=== PATIENT | female | born 1955 | race Caucasian/White ===

== ENCOUNTER 2021-08-28 09:30 | Emergency (ER) | payer MEDICARE, OTHER ==
[2021-08-28] MEDS ORDERED: Norflex 60 MG/2 ML IM ONE (10:13)
[2021-08-28] MEDS ORDERED: TORAdol 30 mg Injection IM ONE (10:13)
--- NOTE | 2021-08-28 10:19 | ERPHSYRPT ---
- History of Present Illness Time Seen by Provider: 08/28/21 09:35 Source: patient Exam Limitations: no limitations Patient Subjective Stated Complaint: Pt has a chronic painful right hip that is hurting again, she has seen Abdirizak King and Dr. Juarez at [facility] for this issue Triage Nursing Assessment: Pt brought to the ER by her family, vitals wnl, rates pain as 7/10 while just laying, pulses normal, denies pain with palpatation to right hip, pain to lower back with palpatation Physician History: 66 years old female with history of hypertension, hyperlipidemia, diabetes mellitus, chronic low back and right hip pain for which she is doing follow-up with Ortho [facility] care and Dr. Anayeli Kaiser at [place] presented in the ER for the last 3 to 4 days history of increasing pain in the right hip with ambulation and partial relief with taking Anchorage which she had from previous visit and resting. Denies any numbness tingling weakness of lower extremities, no loss of bowel or bladder control. Denies any midline back pain. Pain is similar to previous episodes. No fall or trauma reported. No difficulty movements of right hip. Timing/Duration: day(s) (3), constant, gradual onset, worse Method of Injury: unknown Quality: sharp, aching Back Pain Location: paraspinous muscles Severity of Pain-Max: severe Severity of Pain-Current: moderate Modifying Factors: Improves With: immobilization, rest. Worsens With: movement Associated Symptoms: lower back pain, muscle spasms, No urinary incontinence, No loss of bowel control, No numbness in legs/feet, No weakness, No sensory/motor loss, No tingling in legs/feet Previous symptoms: same symptoms as today Allergies/Adverse Reactions: Sulfa (Sulfonamide Antibiotics) Allergy (Verified 08/28/21 10:13) Home Medications: ALPRAZolam 0.25 MG [xanAX 0.25 MG] 0.25 mg PO BID 08/28/21 [History] Atorvastatin Calcium 20 mg PO DAILY 08/28/21 [History] Carvedilol 3.125 mg [Coreg 3.125 MG] 3.125 mg PO BID 08/28/21 [History] Duloxetine HCl 60 mg PO DAILY 08/28/21 [History] Empagliflozin [Jardiance] 10 mg PO DAILY 08/28/21 [History] Gabapentin 300 mg [Neurontin 300 mg] 300 mg PO BID 08/28/21 [History] Insulin Glargine [Lantus Insulin] 60 unit SQ BID 08/28/21 [History] Insulin Lispro [Humalog] 20 unit SQ BID 08/28/21 [History] Metformin HCl 500 mg [Glucophage 500 MG] 500 mg PO BIDWM 08/28/21 [History] Travel Risk - International Travel Have you traveled outside of the country in past 3 weeks: No - Coronavirus Screening Are you exhibiting any of the following symptoms?: No Close contact with a COVID-19 positive Pt in past 14-21 Days: No - Vaccine Status Have you recieved a Covid-19 vaccination: Yes 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 - Vaccination Dates Date of 2cond Vaccination (if applicable): 10/2020 - Review of Systems Constitutional: No Symptoms Eyes: No Symptoms Respiratory: No Symptoms Cardiac: No Symptoms Abdominal/Gastrointestinal: No Symptoms Genitourinary Symptoms: No Symptoms Musculoskeletal: Arthralgias, Back Pain Skin: No Symptoms Neurological: No Symptoms Psychological: No Symptoms Endocrine: No Symptoms Hematologic/Lymphatic: No Symptoms Immunological/Allergic: No Symptoms - Past Medical History Neurological History: No Pertinent History Cardiac History: High Cholesterol, Hypertension Respiratory History: Sleep Apnea Endocrine Medical History: Diabetes Type II Musculoskeletal History: Arthritis, Degenerative Disk Disease, Osteoarthritis Other Medical History: . 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 - Social History Smoking Status: Never smoker Exposure to second hand smoke: No Drug Use: none Patient Lives Alone: Yes - Female History Hx Now: No - Nursing Vital Signs Nursing Vital Signs: Initial Vital Signs Temperature 97.1 F 08/28/21 09:56 Pulse Rate 56 L 08/28/21 09:56 Blood Pressure 179/72 08/28/21 09:56 O2 Sat by Pulse Oximetry 98 08/28/21 09:56 Pain Scale Pain Intensity 7 - Physical Exam General Appearance: no apparent distress, alert Eye Exam: PERRL/EOMI, eyes nml inspection Ears, Nose, Throat Exam: normal ENT inspection Neck Exam: normal inspection, non-tender, supple, full range of motion Respiratory Exam: normal breath sounds, lungs clear Cardiovascular Exam: normal heart sounds, bradycardia Gastrointestinal Exam: soft, normal bowel sounds, other (Ventral hernia), No tenderness Back Exam: normal inspection, normal range of motion, CVA tenderness, muscle spasm, other (Mild tenderness in right sacroiliac area), No vertebral tenderness, No decreased range of motion Extremity Exam: normal inspection, normal range of motion, pelvis stable Neurologic Exam: alert, oriented x 3, cooperative, nml station & gait, sensation nml, No motor deficits Skin Exam: normal color SpO2 Interpretation: normal SpO2: 98 O2 Delivery: Room Air - Progress Progress: improved Progress Note: 08/28/21 she does not have any midline tenderness. Straight leg raising test negative bilaterally. Intact neuro in both lower extremities. No signs of cauda equina. Pain is similar to previous. She is given symptomatic treatment with Toradol and Norflex, reevaluation feeling better. She is advised to take Anchorage which she has at home and will give some muscle relaxants. Discussed on symptoms of worsening needing return to ER which she seems understanding. Stable for discharge. Counseled pt/family regarding: diagnosis, need for follow-up - Departure Departure Disposition: Home Clinical Impression: Low back strain Condition: Stable Critical Care Time: No Referrals: THEO MERCHANT MD [Primary Care Provider] - Follow Up with PCP/3 days ORTHO - ROBERT PATEL NP [NON-STAFF PHY W/O PRIVILEGES] - Follow up/PCP as directed (In 3 days for reevaluation) Instructions: Low Back Pain (DC), Back Muscle Strain (DC) Additional Instructions: Continue with Anchorage/Vicodin which you have at home. Follow-up with Ortho and Dr. Chaparro for reevaluation early next week. Return to ER for worsening/intractable low back pain, numbness tingling weakness of lower extremities/loss of bowel or bladder control. Prescriptions: Cyclobenzaprine HCl 10 mg [Flexeril 10 MG] 10 mg PO TID #12 tablet
[2021-08-28] MEDS ORDERED: TORAdol 30 mg Injection ONE (10:23)
[2021-08-28] MEDS ORDERED: Norflex 60 MG/2 ML ONE (10:23)
[2021-08-28 10:57] VITALS: BP 137/70; PULSE 64; O2SAT 95
== END 2021-08-28 11:04 | disposition home or self-care (01) ==
LOC: ED 09:30
DX: S39.012A Strain of muscle, fascia and tendon of lower back, initial encounter (principal); I10 Essential (primary) hypertension; E78.5 Hyperlipidemia, unspecified; E11.9 Type 2 diabetes mellitus without complications; Z79.4 Long term (current) use of insulin; Z79.84 Long term (current) use of oral hypoglycemic drugs; Z79.891 Long term (current) use of opiate analgesic; Z79.899 Other long term (current) drug therapy
CPT/HCPCS: 96372; 99284; J1885; J2360

== ENCOUNTER 2022-01-23 15:41 | Emergency (ER) | payer MEDICARE, OTHER ==
[2022-01-23 15:57] VITALS: BP 179/87; PULSE 78; O2SAT 98
[2022-01-23] MEDS ORDERED: TORAdol 30 mg Injection IM ONE (16:08)
--- NOTE | 2022-01-23 16:08 | ERPHSYRPT ---
- History of Present Illness Time Seen by Provider: 01/23/22 16:05 Source: patient Exam Limitations: no limitations Patient Subjective Stated Complaint: Fall Triage Nursing Assessment: Patient brought back to ED per w/c and transferred self to bed. Patient A+O X3. Patient states she walked on her wooden deck and slipped on water causing her to fall. Patient complains of head pain, right arm pain and right lower back pain 8/10. Patient has swelling noted to lower right side of back. Physician History: Patient states she walked on her wooden deck and slipped on water causing her to fall. Patient complains of head pain, right arm pain and right lower back pain 8/10. Patient has swelling noted to lower right side of back. Occurred: just prior to arrival Reason for Fall: slipped Injuries/Pain Location: head, back, pelvis Loss of Consciousness: no loss of consciousness Quality: aching Severity of Pain-Max: moderate Severity of Pain-Current: moderate Modifying Factors: Improves With: cold therapy Associated Symptoms (Fall): denies symptoms Body Map: 1 - area of pain Allergies/Adverse Reactions: Sulfa (Sulfonamide Antibiotics) Allergy (Verified 01/23/22 15:50) Home Medications: ALPRAZolam 0.25 MG [xanAX 0.25 MG] 0.25 mg PO BID 08/28/21 [History] Atorvastatin Calcium 20 mg PO DAILY 08/28/21 [History] Carvedilol 3.125 mg [Coreg 3.125 MG] 3.125 mg PO BID 08/28/21 [History] Duloxetine HCl 60 mg PO DAILY 08/28/21 [History] Empagliflozin [Jardiance] 10 mg PO DAILY 08/28/21 [History] Gabapentin [Neurontin 300 mg] 300 mg PO BID 08/28/21 [History] Insulin Glargine [Lantus Insulin] 60 unit SQ BID 08/28/21 [History] Insulin Lispro [Humalog] 20 unit SQ BID 08/28/21 [History] Metformin HCl 500 mg [Glucophage 500 MG] 500 mg PO BIDWM 08/28/21 [History] Hx Influenza Vaccination/Date Given: No Hx Pneumococcal Vaccination/Date Given: No Immunizations Up to Date: Yes Travel Risk - International Travel Have you traveled outside of the country in past 3 weeks: No - Coronavirus Screening Are you exhibiting any of the following symptoms?: No Close contact with a COVID-19 positive Pt in past 14-21 Days: No - Vaccine Status Have you recieved a Covid-19 vaccination: Yes 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 - Vaccination Dates Date of 2cond Vaccination (if applicable): 10/2020 - Review of Systems Constitutional: No Fever, No Chills Eyes: No Symptoms Ears, Nose, & Throat: No Symptoms Respiratory: No Cough, No Dyspnea Cardiac: No Chest Pain, No Edema, No Syncope Abdominal/Gastrointestinal: No Abdominal Pain, No Nausea, No Vomiting, No Diarrhea Genitourinary Symptoms: No Dysuria Musculoskeletal: Back Pain, Fall, Joint Pain (right hip), No Neck Pain Skin: No Rash Neurological: No Dizziness, No Focal Weakness, No Sensory Changes Psychological: No Symptoms Endocrine: No Symptoms All Other Systems: Reviewed and Negative - Past Medical History Neurological History: No Pertinent History Cardiac History: High Cholesterol, Hypertension Respiratory History: Sleep Apnea Endocrine Medical History: Diabetes Type II Musculoskeletal History: Arthritis, Degenerative Disk Disease, Osteoarthritis Other Medical History: . 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 - Social History Smoking Status: Never smoker Exposure to second hand smoke: No Drug Use: none Patient Lives Alone: Yes - Nursing Vital Signs Nursing Vital Signs: Initial Vital Signs Temperature 97.9 F 01/23/22 15:50 Pulse Rate 78 01/23/22 15:50 Respiratory Rate 18 01/23/22 15:50 Blood Pressure 179/87 01/23/22 15:50 O2 Sat by Pulse Oximetry 98 01/23/22 15:50 Pain Scale Pain Intensity 8 - Venkata Coma Score Best Eye Response (Venkata): (4) open spontaneously Best Verbal Response (Raton): (5) oriented Best Motor Response (Venkata): (6) obeys commands Venkata Total: 15 - Physical Exam General Appearance: no apparent distress, alert Head Injury: no evidence of injury Eye Exam: PERRL/EOMI ENT Exam: airway nml Neck Exam: normal inspection, No tenderness Respiratory/Chest Exam: normal breath sounds, No chest tenderness, No respiratory distress Cardiovascular Exam: normal heart sounds, regular rate/rhythm Gastrointestinal Exam: soft, No tenderness, No distention, No guarding, No ecchymosis Back Exam: normal inspection, muscle spasm, No vertebral tenderness Extremity Exam: normal inspection, normal range of motion, pelvis stable, other (right gluteal area pain, tenderness), No deformities Neurologic Exam: alert, oriented x 3, cooperative, sensation nml, No motor deficits Skin Exam: normal color, warm, dry SpO2: 98 - Course Nursing assessment & vital signs reviewed: Yes - Radiology Exams Pelvis X-ray Interpretation: Reviewed by me, Negative Ordered Tests: Active Orders 24 hr Category Date Time Status HIPS JOSUÉ(2V) INCL PEL IF DONE Stat Exams 01/23/22 16:05 Taken Medication Summary Discontinued Medications Generic Name Dose Route Start Last Admin Trade Name Marinoq PRN Reason Stop Dose Admin Ketorolac Tromethamine 60 mg 01/23/22 16:08 01/23/22 16:20 Ketorolac Tromethamine 30 Mg/Ml Inj IM 01/23/22 16:09 60 mg STAT ONE Administration Ketorolac Tromethamine Confirm 01/23/22 16:13 Ketorolac Tromethamine 30 Mg/Ml Inj Administered 01/23/22 16:14 Dose 60 mg .ROUTE .STK-MED ONE Orphenadrine Citrate 60 mg 01/23/22 16:09 01/23/22 16:20 Orphenadrine Citrate 60 Mg/2 Ml Amp IM 01/23/22 16:10 60 mg STAT ONE Administration Orphenadrine Citrate Confirm 01/23/22 16:14 Orphenadrine Citrate 60 Mg/2 Ml Amp Administered 01/23/22 16:15 Dose 60 mg .ROUTE .STK-MED ONE - Progress Progress: improved, pain not gone completely Counseled pt/family regarding: diagnosis, need for follow-up, rad results - Departure Departure Disposition: Home Clinical Impression: Acute right hip pain Right low back pain Qualifiers: Chronicity: acute Sciatica presence: without sciatica Qualified Code(s): M54.50 - Low back pain, unspecified Condition: Stable Critical Care Time: No Referrals: THEO MERCHANT MD [Primary Care Provider] - Follow Up with PCP/3 days Instructions: Preventing Falls, Contusion (DC) Additional Instructions: Discharge/Care Plan MARCELINO IVORY was seen on 01/23/22 in the Emergency Room. The patient was counseled regarding Diagnosis,Lab results, Imaging studies, need for follow up and when to return to the Emergency Room. Prescriptions given: Discharge Note I have spoken with the patient and/or caregivers. I have explained the patient's condition, diagnosis and treatment plan based on the information available to me at this time. I have answered the patient's and/or caregiver's questions and addressed any concerns. The patient and/or caregivers have as good understanding of the patient's diagnosis, condition and treatment plan as can be expected at this point. The vital signs have been stable. The patient's condition is stable and appropriate for discharge from the emergency department. The patient will pursue further outpatient evaluation with the primary care physician or other designated or consulting physician as outlined in the discharge instructions. The patient and/or caregivers are agreeable to this plan of care and follow-up instructions have been explained in detail. The patient and/or caregivers have received these instruction. The patient/and or caregivers are aware that any significant change in condition or worsening of symptoms should prompt an immediate return to this or the closest emergency department or call 911. MARCELINO IVORY was seen on 01/23/22 n the Emergency Room. At that time you were treated for an emergent condition, during your visit Laboratory, Radiology and/or other procedures may have been ordered. It is very important that you follow-up with your Primary Care Physician THEO MERCHANT within the next 24- 48 hours to review your Emergency Room visit and the final results of testing that was ordered. Some test results such as Urine Cultures, Blood Cultures, and other cultures if ordered will not be finalized for 24-48 hours. If you do not have a Primary Care Provider please call the medical records department at [phone] ext [phone] to obtain a copy of your results or you may sign into our patient portal to obtain these results by visiting us @ [email or web address] and completing the following steps: 1. Click on the Patient Portal link 2. Click the Patient Self Enrollment Link to complete the enrollment form and entering your 3. Once the enrollment form is completed you will receive an email with a temporary ID and password at the email address you provided. 4. Next choose a user name and password. Your user name must be at least 4 characters long and your password must be at least 4 characters long. 5. Choose a security question from the list and provide your answer to the question. If you already have signed into the Health Portal you may access your Health Care Information 28/03 by the following steps: 1. Login to our website @ [email or web address] 2. Enter your original user name and password. FAQS The [facility] Health Portal is an online tool that contains your Lab Results, Radiology Reports, Visit History, Discharge Instructions and Health Summary Lab and Radiology Results will not be available for 72 hours on the portal. The Portal is a secure site, passwords are encryted and URLs are re-written so they cannot be copied and pasted. You and authorized family members are the only ones who can access your Portal. Also there is a timeout feature that protects your information if you leave the Portal page open. If you have technical difficulty please use the Contact Us link on the page this will allow you to submit any questions you have regarding the Portal or you may contact the Medical Record Department at [phone]. Prescriptions: Naproxen 500 mg [Naprosyn 500 MG] 500 mg PO BIDAC #20 tablet Orphenadrine Citrate 100 mg [Norflex 100 MG Tablet] 100 mg PO BID #20 tab
[2022-01-23] MEDS ORDERED: Norflex 60 MG/2 ML IM ONE (16:09)
[2022-01-23] MEDS ORDERED: TORAdol 30 mg Injection ONE (16:13)
[2022-01-23] MEDS ORDERED: Norflex 60 MG/2 ML ONE (16:14)
--- NOTE | 2022-01-23 19:34 | XRAY ---
Indication: Pain following fall. Comparison: August 31, 2021. 2 view left and right hip again demonstrates osteopenia, mild/moderate bilateral degenerative arthropathy, and incidental ossification of right iliolumbar ligament. No new/acute bony, articular, or soft tissue abnormalities.
== END 2022-01-23 16:41 | disposition home or self-care (01) ==
LOC: ED 15:41
DX: M25.551 Pain in right hip (principal); M54.50 Low back pain, unspecified; R51.9 Headache, unspecified; M79.601 Pain in right arm; W01.0XXA Fall on same level from slipping, tripping and stumbling without subsequent striking against object, initial encounter; Y93.01 Activity, walking, marching and hiking; Y92.008 Other place in unspecified non-institutional (private) residence as the place of occurrence of the external cause; E78.5 Hyperlipidemia, unspecified; I10 Essential (primary) hypertension; E11.9 Type 2 diabetes mellitus without complications; Z79.4 Long term (current) use of insulin; Z79.899 Other long term (current) drug therapy
CPT/HCPCS: 73521; 96372; 99284; J1885; J2360